=== PATIENT | female | born 1945 | race Caucasian/White ===

== ENCOUNTER → 2017-01-20 | Outpatient (CLI) | payer MEDICARE, OTHER ==
--- NOTE | 2017-01-21 05:25 | HKNOTE ---
DATE OF SERVICE: 01/20/2017 MAIN COMPLAINT: Pain and swelling in both knees, worse on the right side. Locking and instability of the right. HISTORY OF MAIN COMPLAINT: The patient is a 72-year-old female who had taken a few falls in her apple se. Two falls included tripping over a cable and 1 involves slipping on a wet kitchen floor. She f eels that these injuries may have had something to do with her ongoing pain in both knees. The patient has seen another orthopedic surgeon ( ) who after evaluation of the knees recomm ended "gel" injections into both knees. She had 3 of those and they did not help at all. All in all, she had problems for a year or more. She describes the pain as being moderate to severe . PRESENT COMPLAINTS: The patient gets pain with walking and stair climbing. She has very little twyla n at rest. She gets night pain. She takes Naprosyn 500 mg twice a day and she has also tried Aleve 220 mg twice a day. She does not get any numbness or tingling in the legs or she takes Aleve 200 m g a day. Elevation of the leg seems to help as well. On a level surface she can walk a mile if she wears "my knee sleeves". She does not use a walking aid. She does not limp. She does not have a shoe lift. She can clip her toenails and tie her shoelaces. SPORTING ACTIVITIES: None. PAST ORTHOPEDIC HISTORY: Entirely negative. PRIOR CORTISONE INTAKE: Patient has had cortisone injections in the right knee. ALCOHOL INTAKE: She drinks 2 glasses of wine a day. OTHER JOINT PROBLEMS: The patient tore a tendon in her left hip which she is occasionally seen by Hansa Allred. BLOOD TESTS FOR ARTHRITIS: She has not had any blood tests for arthritis. Note that when she fell in the kitchen, she twisted 1 or both of the knees. WORK STATUS: Retired. PAST MEDICAL HISTORY: Hypertension. PAST SURGICAL HISTORY: Tonsillectomy. DRUG ALLERGIES: NONE. MEDICATIONS: 1. Naprosyn. 2. Rosuvastatin. 3. Amlodipine. 4. Ezetimibe. 5. Low dose aspirin 6. Vitamin K/D3 200 mg a day. 7. Probiotic. 8. Centrum Silver. 9. Calcium. 10. Magnesium 11. Nexium. FAMILY HISTORY: Father at 69 of heart problems. Mother at 70, possibly of cancer. SYSTEMS REVIEW: Gait disturbance, hypertension diagnosed in 2010 with "colitis". HABITS: Patient smoked for 30 years, but gave up in 1999. She takes 2 glasses of wine a day. POOL TABLE MECHANIC: Dr. Seema Aguilar MD [address], [address] [place] [address]. PHYSICAL EXAMINATION: GENERAL: The patient is a youthful 72-year-old female. VITAL SIGNS: Height 5 feet 4 inches, weight 138 pounds, blood pressure 155/70, temperature 98.0. GAIT: The patient walks without a walking aid. Her gait is normal. HIPS: Both hips have full range of motion without pain. RIGHT KNEE: The right knee shows normal alignment. Extension lacks 10 degrees. Flexion lacks 20 de grees (marked pain). The medial and lateral collateral ligaments and cruciate ligaments are intact. Bruna test is negative. 2+ effusion, 1+ crepitus in the knee around the patella. The patella trac ks normally. There is no tenderness on the articular surface of the patella or in the patellar groov e. The Q angle is normal. LEFT KNEE: The left knee shows normal alignment. Extension lacks 10 degrees. Flexion lacks 10 degre es. The medial and lateral collateral ligaments and cruciate ligaments are intact. Bruna test is n egative. There is 1+ effusion, 1+ crepitus. Marked pain on further passive extension. The patella t racks normally. There is no tenderness on the articular surface of the patella or in the patellar gr oove. The Q angle is normal. IMAGING: Plain x-rays of her knees obtained today at [facility] were reviewed. The knees are almost symmetrical in the findings. Both knees have marked narrowing of the medial chance int spaces without [id number] contact. Both have patellofemoral joint problems (pain). The lovell lofemoral joint and lateral compartments are almost normal. DIAGNOSES: 1. Degenerative osteoarthritis of both knees. 2. Probable torn meniscus of both knees. 3. Known hypertension. 4. Hypercholesterolemia. MANAGEMENT: The patient is advised that although she has arthritis in both knees and will eventuall y need knee replacement surgery, she certainly has a long way to go before the replacement surgery m ight become necessary. She was advised that my prediction is unpredictable. She may take another s everal years before she needs knee replacement. Meanwhile, she has new onset symptoms suggestive of an internal derangement of both knees. She is being sent for an MRI scan of both knees and she will be seen thereafter for reevaluation and appropriate treatment. Dictated By: NILDA HULL/HALI Conf#: [id number] DID#: [id number]
--- NOTE | 2017-01-21 08:17 | RADRPT ---
PROCEDURE: XR Knees. CLINICAL INDICATION: Bilateral knee pain TECHNIQUE: Three views of the bilateral knees are available for review. COMPARISON: None available FINDINGS: There are tiny suprapatellar effusions bilaterally. There is no fracture. There is no dislocation. There is no lytic or blastic lesion. There is bilateral tricompartmental osteoarthritis. There is no radiopaque foreign body. IMPRESSION: 1. Tricompartmental osteoarthritis. 2. No acute fracture or dislocation is seen. RPTAT:AACC Gautam Calloway Physician Date Time Electronically viewed and signed by Gautam Calloway Physician on 01/21/2017 08:16 /
== END | disposition home or self-care (01) ==
LOC: HKI 09:45
DX: M17.0 Bilateral primary osteoarthritis of knee (principal); I10 Essential (primary) hypertension; E78.00 Pure hypercholesterolemia, unspecified; Z87.891 Personal history of nicotine dependence
CPT/HCPCS: 73562; G0463

== ENCOUNTER → 2017-01-28 | Outpatient (CLI) | payer MEDICARE, OTHER ==
--- NOTE | 2017-01-29 06:54 | HKNOTE ---
DATE OF SERVICE: The patient had the MRI of both of the knees for review. The MRI of the right knee (that is the mor e painful one) obtained on 01/23/[address] Vernon Weeks as showing "diffuse degenera tive tearing of the posterior horn and mid zone of the medial meniscus which are diminutive in size and medially extruded from the weightbearing portion of the medial compartment of the knee. There a re accompanying small parameniscal cysts posteriorly. Mild degenerative osteoarthritic changes affe cting the medial compartment with grade IV chondrolysis and subchondral bone marrow edema". The MRI scan of the right knee obtained on the same date as reported by Dr. Weeks is showing "di ffuse degenerative tearing of the posterior horn and mid zone of the medial meniscus which are dimin utive in size and medially extruded from the weightbearing compartment". MRI scan of the left knee obtained on the same date is reported by Dr. Weeks as showing " degenerative changes of mild to moderate degree of severity affecting the medial compartment where there is complete chondral denuda tion, subchondral bone marrow edema and marginal osteophyte formation. Less pronounced changes affe ct the lateral compartment of the knee. There is grade III to IV chondral loss affecting the patell ofemoral compartment". The patient still has instability of the right knee. The pain in both knees is medial. She states that she can walk almost a mile at a time without stopping, but she will get pain in the knee. She wears "knee sleeves" every Wednesday and is able to walk better with the sleeves on. MANAGEMENT: We spent a considerable amount of time discussing the pros and cons of proceeding with a knee replacement or having an arthroscopic operation on each knee. She understands this is a com mon dilemma in the treatment of knees . It is possible that she may not need any surgery on ei ther knee for 2 or 3 years after an arthroscopic surgery and possibly she may get no benefit on the arthroscopic surgery and we may tell her that she needs to proceed with a knee replacement. After a very extensive discussion, she decided that she would prefer to have an arthroscopic operation on e ach knee on the same day if possible. I discussed the available doctors with her. I advised her th at I could not operate on her for at least 2 months because of a sciatica on my right side. After a long discussion, she decided that she would like to proceed with the arthroscopy simultaneously if possible with Dr. Marion. She understands fully that she may end up having to have 2 operations on each knee if she goes the arthroscopic route. I spent considerable time discussing arthroscopic surgery of the knee, type of anesthetic, probable rehab, the fact that it may take her 2 months to recover from an arthroscopic operation and that she very likely would still need to have knee replacement surgeries sometime after that. She understan ds all this and she will come in to see Dr. Marion for discussion about her knees. He will also anand e over the operative arthroscopy of her knees. Dictated By: NILDA HULL/HALI Conf#: [id number] DID#: [id number]
== END | disposition home or self-care (01) ==
LOC: HKI 09:23
DX: M25.562 Pain in left knee (principal); M25.561 Pain in right knee; M23.221 Derangement of posterior horn of medial meniscus due to old tear or injury, right knee; M25.861 Other specified joint disorders, right knee; M17.11 Unilateral primary osteoarthritis, right knee
CPT/HCPCS: G0463

== ENCOUNTER → 2017-02-05 | Outpatient (CLI) | END | disposition home or self-care (01) ==

== ENCOUNTER → 2017-03-05 | Outpatient (CLI) | END | disposition home or self-care (01) ==

== ENCOUNTER → 2017-04-16 | Outpatient (CLI) | END | disposition home or self-care (01) ==

== ENCOUNTER 2017-04-20 09:06 | Inpatient (IN) | END 2017-04-22 18:10 | disposition home health service (06) | DRG 462 ==

== ENCOUNTER → 2017-05-07 | Outpatient (CLI) | END | disposition home or self-care (01) ==

== ENCOUNTER → 2017-06-07 | Outpatient (CLI) | END | disposition home or self-care (01) ==

== ENCOUNTER → 2017-11-01 | Outpatient (CLI) | END | disposition home or self-care (01) ==

== ENCOUNTER → 2018-05-16 | Outpatient (CLI) | payer MEDICARE, OTHER ==
[~2018-05-16] MED LIST: AMLO5TAB4 PO; CALC600T24 PO; CELE200C PO; DOXY20TA5 PO; ERGO2000 PO; ESOM20CA PO; EZET10TA31 PO; LACT1CAP52 PO; MULT-853 PO; NAPR220C2 PO; ROSU40TA35 PO
--- NOTE | 2018-05-16 11:24 | CONS ---
Assessment/Plan Assessment/Plan Hospital Course (Demo Recall) 73-year-old female 1 year status post simultaneous bilateral medial unicompartmental knee arthroplasty. Overall she is doing very well. Her left k nee pain is most likely due to distal IT band tendinitis. there is no significant progression of arthritis in the other compartments. She does not have any mechanical symptoms. The pain is significantly helped with anti- inflammatories. Plan: Continue NSAIDs Prescribed diclofenac gel Physical therapy Follow-up PRN and for annual surveillance in 1 year. Consultation Date/Type/Reason Admit Date/Time Date of Consultation: May 16, 2018 Reason for Consultation Bilateral unicompartmental knee follow-up Date/Time of Note DATE: 05/16/18 TIME: 11:17 Hx of Present Illness This is a 73-year-old female who is following up today for her annual follow-up for bilateral knee medial unicompartmental knee arthroplasty. She had both knees done simultaneously on April 20, [address] Marion. This is the first time I have seen her in my clinic. Over the last couple months she has been having some left lateral knee pain. The pain is worse when she is bending down for example to picker tender helper a ball for her dogs. The pain is sharp but short lived. It has gotten better than last week. Massaging does help the pain. Ice helps the pain. Her pain right now is 34 out of 10. Denies any numbness and tingling except lateral to the incision. Denies any popping clicking or other mechanical symptoms. No issues with the right knee. She has not had physical therapy since October. She does take Aleve as needed and this does seem to help. Patient denies fever, chills, shortness of breath, chest pain, nausea/vomiting, constipation, diarrhea, numbness, and tingling. Past Medical History Hypertension Colitis Hypothyroidism Home Meds Reported Medications Celecoxib* (Celebrex*) 200 Mg Capsule, 200 MG PO BID, CAP 04/20/17 Naproxen* (Aleve*) 220 Mg Capsule, 220 MG PO DAILY, #60 CAP 04/20/17 Esomeprazole Mag Trihydrate (Nexium) 20 Mg Capsule.dr, 20 MG PO DAILY, #30 CAP 04/20/17 Calcium Carbonate* (Calcium Carbonate*) 600 MG Ca Tab, 600 MG PO DAILY, TAB 04/20/17 Lactobacillus Combo No.10 (Probiotic) 1 Each Capsule, 1 CAP PO DAILY, CAP 04/20/17 Multivits-Min/Iron/FA/Lutein (Centrum Silver Women Tablet) 1 Each Tablet, 1 EACH PO DAILY, TAB 04/20/17 Ergocalciferol (Vitamin D2) (VITAMIN D2) 2,000 Unit Tablet, 2000 UNIT PO DAILY, TAB 04/20/17 Rosuvastatin Calcium* (Crestor*) 40 Mg Tablet, 40 MG PO QHS, #30 TAB 04/20/17 Ezetimibe* (Zetia*) 10 Mg Tablet, 10 MG PO HS, TAB 04/20/17 Amlodipine Besylate* (Norvasc*) 5 Mg Tablet, 5 MG PO QHS, TAB 04/20/17 Doxycycline Hyclate (Doxycycline Hyclate) 20 Mg Tablet, 20 MG PO BID, TAB 04/20/17 Allergies: Coded Allergies: No Known Allergy (Unverified , 04/16/17) Past Surgical History Simultaneous bilateral knee medial unicompartmental arthroplasty -thyroid [address] Marion Past Surgical Hx: no surgical history Social History Alcohol Use: heavy (12 glasses of wine weekly) Smoking Status: Former smoker Drug Use: none Exam/Review of Systems Exam Vitals Weight: 142 pounds Height: 5 feet 4 inches Temperature: 98.2 Heart Rate: 50 Blood Pressure: 153/67 Respiratory Rate: 14 Exam General: Alert, oriented x3. No Acute Distress. Heart: Regular rate and rhythm. Lungs: No respiratory distress. No accessory muscle use. Bilateral lower Extremity: Incision healed. No skin breakdown, no surrounding erythema. Sensation intact to light touch in a sural, saphenous, deep peroneal, superficial peroneal, medial and lateral plantar nerve distribution. Motor is intact, patient able to dorsiflex and plantarflex ankle and extend and flex great toe. Dorsalis Pedis pulse +2, Brisk capillary refill. Compartments are soft. ROM: Extension: 0 Flexion: 130 Varus/ Valgus Stability: Stable in extension, flexion, and throughout range of motion A/P Stability: Stable Left knee tender to palpation over distal IT band and over Zoila's tubercle. Gait: Quick pace. None antalgic. No gait aid. Imaging Imaging Xrays obtained in clinic today and personally reviewed by myself: Bilateral AP and merchant views and a dedicated lateral of the left and right knee demonstrates bilateral knee knee s/p medial UKA. Components in good position and alignment. No signs of wear, osteolysis, loosening, component failure, or fracture. No acute complications. CHELSIE KEARNS MD May 16, 2018 11:24
--- NOTE | 2018-05-19 07:59 | RADRPT ---
PROCEDURE: Bilateral weightbearing knee series CLINICAL INDICATION: Bilateral knee pain TECHNIQUE: Weight bearing AP, lateral, and sunrise views of the bilateral knees COMPARISON: 11/01/2017 bilateral knee series FINDINGS: Redemonstrated are bilateral medial unicondylar arthroplasties with intact hardware and gross anatomi c alignment. Interval increased lucencies are noted surrounding the medial tibial condylar components . Recommend correlation with potential loosening . The soft tissues demonstrate small bilateral knee infusions. No acute fractures or dislocations are noted. No evidence for lytic or blastic lesions are noted. The soft tissues demonstrate vascular calcifications in the right greater than left posterior soft tissues. Early osteophyte formation and joint space narrowing is noted of the bilateral lateral joint compartments right greater than left. IMPRESSION: 1. Bilateral medial compartment unicondylar arthroplasty is with lucency present surrounding the med ial tibial components. Recommend correlation clinically and evaluate for potential loosening. 2. Small bilateral pleural effusions 3. Mild atherosclerotic vascular disease 4. No significant interval change in the early right greater than left lateral joint compartment ost eoarthritis RPTAT: HDC .Susan Seth MD, Date Time Electronically viewed and signed by .Susan Seth MD, on 05/19/2018 07:59 .C/
== END | disposition home or self-care (01) ==
LOC: HKI 10:21
PROVIDERS: ATTEND Orthopaedic Surgery Adult Reconstructive Orthopaedic Surgery
DX: M25.562 Pain in left knee (principal); M25.561 Pain in right knee; I10 Essential (primary) hypertension; E03.9 Hypothyroidism, unspecified
CPT/HCPCS: 73562; G0463